=== PATIENT | male | born 1990 | race Caucasian/White ===

== ENCOUNTER 2021-09-20 03:06 | Emergency (ER) | payer SELFPAY ==
[~2021-09-20] VITALS: Ht 188 cm; Wt 96.0 kg
[2021-09-20 03:29] VITALS: BP 143/88
== END 2021-09-20 03:43 | disposition home or self-care (01) ==
LOC: ER 03:06
DX: Z76.0 Encounter for issue of repeat prescription (principal); F20.9 Schizophrenia, unspecified; R03.0 Elevated blood-pressure reading, without diagnosis of hypertension
CPT/HCPCS: 99283